=== PATIENT | male | born 1975 | race Caucasian/White ===

== ENCOUNTER 2020-06-16 22:15 | Emergency (ER) | payer SELFPAY ==
[2020-06-16 22:13] VITALS: BP 137/86; PULSE 76; RESP 20; TEMP 36.3; O2SAT 96; BMI 33.9
--- NOTE | 2020-06-16 22:13 | ECG_ITS ---
APPROVED REPORT Exam: Resting ECG HR:102 bpm ECG Measurements Heart Rate 102 AXES OK 150 P 32 QRSd 108 QRS 40 QT 342 T 2 QTc 445 Conclusion Sinus tachycardia Right bundle branch block Abnormal ECG Electronically signed by : Shiva Milligan, 06/18/2020 20:29:47
--- NOTE | 2020-06-16 22:24 | [facility].EDGENADL ---
ED Disposition Clinical Impression: Altered mental status Qualifiers: Altered mental status type: disorientation Qualified Code(s): R41.0 - Disorientation, unspecified Disposition: Home, Self-Care Condition on Discharge: Good Instructions: DI for Altered Mental Status Additional Instructions: Return if any new or recurrent symptoms Referrals: Shiva Sanchez MD [Primary Care Provider] - - Critical Care Critical Care Time: No Attestation: On 06/16/20, the high probability of a clinically significant, sudden or life threatening deterioration of the following system(s) required my full and direct attention, intervention and personal management. The time I documented below is in addition to time spent performing reported procedures but includes the following listed in this critical care notation. Medical Decision Making - Medical Records Medical records reviewed: Yes: I reviewed the patient's medical records. - Miguelangel Inquiry Pt receiving controlled substance: No Vital Signs: 06/16/20 22:13 06/16/20 22:34 06/16/20 23:00 Temperature 97.3 F L Temperature Source Temporal Artery Scan Pulse Rate 77 64 Pulse Rate [Apical] 76 Respiratory Rate 20 15 20 Blood Pressure 121/79 115/70 Blood Pressure [Right Arm] 137/86 Blood Pressure Mean [Right Arm] 103 Blood Pressure Source Automatic Cuff Automatic Cuff Blood Pressure Source [Right Arm] Automatic Cuff Blood Pressure Position Supine Supine Blood Pressure Position [Right Arm] Supine 02 Sat by Pulse Oximetry 96 99 Oxygen Delivery Method Room Air Room Air 06/16/20 23:30 06/16/20 23:45 06/17/20 00:00 Temperature Temperature Source Pulse Rate 58 L 56 L 63 Pulse Rate [Apical] Respiratory Rate 15 14 13 Blood Pressure 106/55 L 109/65 L Blood Pressure [Right Arm] Blood Pressure Mean [Right Arm] Blood Pressure Source Blood Pressure Source [Right Arm] Blood Pressure Position Blood Pressure Position [Right Arm] 02 Sat by Pulse Oximetry 96 98 95 Oxygen Delivery Method Room Air 06/17/20 00:30 06/17/20 00:44 06/17/20 01:00 Temperature Temperature Source Pulse Rate 47 L 50 L 45 L Pulse Rate [Apical] Respiratory Rate 14 12 12 Blood Pressure 103/61 L 104/62 L 106/60 L Blood Pressure [Right Arm] Blood Pressure Mean [Right Arm] Blood Pressure Source Blood Pressure Source [Right Arm] Blood Pressure Position Blood Pressure Position [Right Arm] 02 Sat by Pulse Oximetry 93 L 97 100 Oxygen Delivery Method 06/17/20 01:30 06/17/20 02:03 06/17/20 02:31 Temperature Temperature Source Pulse Rate 56 L 55 L Pulse Rate [Apical] Respiratory Rate 12 14 16 Blood Pressure 102/58 L 98/70 L 128/68 Blood Pressure [Right Arm] Blood Pressure Mean [Right Arm] Blood Pressure Source Blood Pressure Source [Right Arm] Blood Pressure Position Blood Pressure Position [Right Arm] 02 Sat by Pulse Oximetry 99 98 96 Oxygen Delivery Method 06/17/20 03:00 06/17/20 03:30 06/17/20 04:00 Temperature Temperature Source Pulse Rate 55 L 57 L 50 L Pulse Rate [Apical] Respiratory Rate 15 14 15 Blood Pressure 107/57 L 97/49 L 104/54 L Blood Pressure [Right Arm] Blood Pressure Mean [Right Arm] Blood Pressure Source Blood Pressure Source [Right Arm] Blood Pressure Position Blood Pressure Position [Right Arm] 02 Sat by Pulse Oximetry 96 91 L 91 L Oxygen Delivery Method 06/17/20 04:30 06/17/20 05:00 Temperature Temperature Source Pulse Rate 52 L 49 L Pulse Rate [Apical] Respiratory Rate 13 14 Blood Pressure 103/63 L 101/61 L Blood Pressure [Right Arm] Blood Pressure Mean [Right Arm] Blood Pressure Source Blood Pressure Source [Right Arm] Blood Pressure Position Blood Pressure Position [Right Arm] 02 Sat by Pulse Oximetry 92 L 95 Oxygen Delivery Method - Lab Data Lab Results 06/16/20 22:15: WBC 9.1, RBC 4.65, Hgb 13
[2020-06-16 22:34] VITALS: BP 121/79; PULSE 77; RESP 15
[2020-06-16 23:00] VITALS: BP 115/70; PULSE 64; RESP 20; O2SAT 99
--- NOTE | 2020-06-16 23:00 | PC.NURSE ---
Pt became combative with staff and resistive to care. Restraint orders from obtained. Restraints applied and UA obtained via straight cath. Pt was able to calm down and restraints were removed at 2326.
[2020-06-16 23:03] LABS: Chloride 104 mmol/L (98-107); Potassium 3.3 mmoL/L (3.5-5.1); Sodium 138 mmol/L (136-145)
[2020-06-16 23:05] LABS: Blood Urea Nitrogen 20 mg/dl (9-20); Creatinine Clearance Estimated 139 mL/min (50-200); Estimated Glomerular Filt Rate 73 ml/min (>60); GFR (African American) 88 ML/MIN (>60)
[2020-06-16 23:06] LABS: Alanine Aminotransferase 19 U/L (12-78); Albumin Level 4.5 g/dl (3.5-5.0); Albumin/Globulin Ratio 1.6 (1.1-1.8); Alkaline Phosphatase 54 U/L (38-126); Anion Gap 10.3 mEq/L (5-15); Aspartate Amino Transferase 26 U/L (17-59); Bilirubin,Total 0.7 mg/dl (0.2-1.3); Calcium 8.9 mg/dl (8.4-10.2); Carbon Dioxide 27 mmol/L (22.0-30.0); Globulin 2.9 g/dL (1.3-3.2); Glucose 135 mg/dl (74-100); Total Protein,Serum 7.4 g/dl (6.3-8.2)
[2020-06-16 23:07] LABS: Ethyl Alcohol < 10 mg/dl (0-10)
[2020-06-16 23:15] LABS: Basophils % 0.5 % (0.1-2.0); Eosinophils # 0.1 K/mm3 (0.0-0.4); Eosinophils % 1.5 % (0.1-12.0); Hematocrit 42.6 % (42.0-52.0); Hemoglobin 13.9 g/dL (14.1-18.0); Lymphocytes # 2.8 K/mm3 (0.7-4.5); Lymphocytes % 30.5 % (10-50); Mean Corpuscular HGB Conc 32.7 g/dL (31.8-35.4); Mean Corpuscular Hemoglobin 29.9 pg (27.0-31.2); Mean Corpuscular Volume 91.6 fl (80-94); Mean Platelet Volume 9.1 fl (7.4-10.4); Monocytes # 0.5 K/mm3 (0.1-1.0); Neutrophils # 5.7 K/mm3 (1.8-7.8); Neutrophils % 62.6 % (37.0-80.0); Platelet Count 267 K/mm3 (142-424); Red Blood Count 4.65 M/mm3 (4.60-6.20); White Blood Count 9.1 K/mm3 (4.8-10.8)
[2020-06-16 23:30] VITALS: PULSE 58; RESP 15; O2SAT 96
[2020-06-16 23:39] LABS: Barbiturates Screen,Urine Negative ng/ml (<200)
[2020-06-16 23:40] LABS: Amphetamine/Metha Screen,Urine Negative ng/ml (<1000); Benzodiazepines Screen,Urine Positive ng/ml (<200)
[2020-06-16 23:41] LABS: Cannabinoid Screen,Urine Positive ng/ml (<50); Cocaine Screen,Urine Negative ng/ml (<300)
[2020-06-16 23:42] LABS: Methadone Screen,Urine Negative ng/ml (<300)
[2020-06-16 23:43] LABS: Opiate Screen,Urine Positive ng/ml (<300); Phencyclidine Screen,Urine Negative ng/ml (<25)
[2020-06-16 23:45] VITALS: BP 106/55; PULSE 56; RESP 14; O2SAT 98
[2020-06-17] VITALS (14 sets, daily range): BP systolic 97–128; BP diastolic 49–70; PULSE 45–63; RESP 12–20; TEMP 36.4; O2SAT 91–100
== END 2020-06-17 06:27 | disposition home or self-care (01) ==
PROVIDERS: Emergency Provider Emergency Medicine; PCP Family Medicine
DX: R41.0 Disorientation, unspecified (principal); F15.10 Other stimulant abuse, uncomplicated; F12.10 Cannabis abuse, uncomplicated
CPT/HCPCS: 80053; 80305; 85025; 93005; 96365; 96367; 96375; 99282; J2405